=== PATIENT | female | born 1955 | race Caucasian/White ===

== ENCOUNTER 2021-10-10 11:06 | Outpatient (CLI) | payer OTHER, SELFPAY ==
--- NOTE | 2021-10-10 11:28 | ECG_ITS ---
Measurements Intervals [place] Rate: 65 P: 40 CT: 137 QRS: 37 QRSD: 89 T: 30 QT: 400 QTc: 416 Interpretive Statements SINUS RHYTHM INCOMPLETE RIGHT BUNDLE BRANCH BLOCK LOW QRS VOLTAGE IN PRECORDIAL LEADS BASELINE ARTIFACT- I, II, III, AVR, AVL, AVF BORDERLINE ECG Electronically Signed On 10-10-2021 11:48:42 CDT by Moose Clayton D.O.
[2021-10-10 11:57] LABS: Hematocrit 38.8 % (37.0-47.0); Hemoglobin 12.3 g/dL (12.0-15.0)
== END 2021-10-10 11:07 | disposition home or self-care (01) ==
LOC: ANHSURGERY 11:12
PROVIDERS: Anesthesiology; Visit Provider Surgery Plastic and Reconstructive Surgery
DX: Z01.818 Encounter for other preprocedural examination (principal); Z41.1 Encounter for cosmetic surgery; Z72.0 Tobacco use; I45.10 Unspecified right bundle-branch block
CPT/HCPCS: 36415; 85014; 85018; 93005

== ENCOUNTER 2021-10-12 00:21 | Day surgery (SDC) | payer OTHER, SELFPAY ==
[2021-10-06 15:28] VITALS: BMI 31.1
--- NOTE | 2021-10-06 15:31 | SUR.PREOP ---
Report to the Outpatient Waiting Room, entrance under the green pavilion located off [facility], at time _0600 on date _10/12/21 . OR Time: _0730. - You and your visitor will be asked a series of questions to screen for COVID 19 for your protection. - Only one visitor is allowed at this time. - The patient visitor is requested to leave or wait in car when not with patient. - A mask is required within the hospital. Patients may have clear liquids (water, carbonated beverages, clear teas, apple juice) until 3 hours prior to surgery with a maximum of 20 ounces. - No food from midnight until time of surgery - Infants may have breast milk until 4 hours before surgery, infant formula 6 hours prior to surgery. - Children will be allowed to drink immediately following surgery. If applicable, please bring a bottle or sippy cup to assist with drinking. Juice, water, soda, and popsicles are readily available. For infants on formula, please bring formula the day of surgery. Pacifiers are allowed. Take the following medications with a SIP of water the morning of surgery: __gabapentin,sertaline,anastrozole__,siponimod Medications to discontinue per physician ____aspirin Date to take last dose___09/06/21 Please no make-up, nail wolof, hairspray, perfume, deodorant, or body powder the day of surgery. No jewelry (including any body piercings) or valuables the day of surgery, leave them at home. Please take a shower or bath the night before, or the morning of, surgery with an antibacterial soap. Wear comfortable, loose fitting clothing. Children are encouraged to wear pajamas. - Jewelry must be removed prior to entering the operating room. Rings and piercings that are not removed may be cut off. - The hospital will not accept responsibility for valuables. - Please leave all valuables, including medications, at home the day of surgery. If you are going home after surgery, a licensed dumpster driver must drive you home. - NO public transportation without another adult. - We recommend that an adult stay with you for 24 hours following discharge. - We also recommend that you do not drive, make important decision, drink alcoholic beverages, or take any drugs that were not prescribed by your health care provider for at least 24 hours after your discharge time. For Pediatric surgeries, we recommend two adults accompany the child home (only one inside the building at this time). Follow any additional instructions given to you from your surgeon. If you or anyone in your household have experienced Covid symptoms in the past week, please notify your surgeon or the nurse liaison at the phone number below for possible testing. Telephone instructions given to ela mullen and asked if any additional questions and then verbalized understanding. Patient advised to call surgeon office or pre surgery nurse liaison [phone] if any additional questions.
[2021-10-12] VITALS (12 sets, daily range): BP systolic 111–142; BP diastolic 60–85; PULSE 56–93; RESP 14–20; TEMP 36.2–37.5; O2SAT 94–100; BMI 29.8
--- NOTE | 2021-10-12 06:14 | W.PM.PROC2 ---
Procedure Note - Detailed Date of Procedure 10/12/21 Pre-op Diagnosis skin laxity Post-op Diagnosis Same Procedure Performed 1. Bilateral upper eyelid blepharoplasty 2. Bilateral lower eyelid transconjunctival blepharoplasty 3. Facial rhytidectomy 4. Cervicoplasty Surgeon Jarad Stanford MD Anesthesia General Description of Procedure Preoperatively the risks, benefits, alternatives were discussed in extensive detail. I want her to be very realistic about the risks involved as well as expectations. Reviewed what we can and cannot accomplish. We discussed her current asymmetries and let will persist following the procedure. She understands this could worsen the dry eye symptoms she has currently.Realistic expectations of outcome. All questions were answered to satisfaction. Consent obtained. She was taken to the operating room placed supine on the operating room table. Anesthesia provided by anesthesiology. Prepped and draped in a standard sterile fashion. Surgical time-out was taken. Upper eyelid blepharoplasty Preoperatively I had marked upper eyelid blepharoplasty incisions. Using a pinch technique I verified no lagophthalmos following the procedure. Tetracaine eyedrops in BSS were utilized. One Upper textures were placed. 1% lidocaine and 0.25% Marcaine with epinephrine was used anesthetize locally. I sharply excised the skin flap and removed the skin just superficial to the orbicularis muscle bilateral. I then open the nasal and middle fat compartment removed just was clearly excess adipose tissue in these compartments. This was closed using a running subcuticular 5 0 Prolene suture which was ultimately held with Steri-Strips medial and lateral. Lower lid blepharoplasty 1% lidocaine and 0.25% Marcaine with epinephrine was used anesthetize locally. I sharply incised just inferior to the tarsus trans conjunctivae approach. I proceeded preseptal to the level of the orbital rim. I open the nasal, middle, and temporal fat compartments. Care was taken to protect the inferior oblique muscle which was identified. I only removed which was clearly excess adipose tissue in this location. Tarsal suspension was completed through the superior incision with 4-0 Vicryl to the orbital rim. A temporary tarsorrhaphy suture was placed. Face / Neck Local anesthesia was provided with a tumescent solution using lidocaine, epinephrine, and TXA. Once adequate time for effect a fifteen blade used to make a submental incision. Dissection was continued down identified platysma muscle. Elevated skin flaps with good adiposity of the deep surface throughout the neck. Excess preplatysmal fat was removed. I then went sub platysmal and deep fat of the small portion. Care was taken to make sure there was a good smooth contour under the submental area. There really was minimal protrusion of the submandibular glands noted and they were not treated. I plicated the digastric muscle with 2-0 Vicryl. I then slightly trimmed the platysma muscle and imbricated as with vertical mattress sutures using 2-0 Vicryl in multiple layers. Also completed inferior platysmal release with no evidence of neurovascular or other structure injury. I then proceeded made the remainder of the incisions. I elevated skin flaps with good adequate adiposity of the deep surface to have good contour. This was continued for all the areas necessary for mobilization. Platysmal window was completed inferior / lateral to the mandibular angle and I utilized 2-0 Vicryl to support to the mastoid fascia bilateral. Next SMAS plication was completed in multiple layers using 2-0 Vicryl bilateral. This is an oblique fashion from the angle towards the malar prominence. Copious irrigated with saline solution and verified strict hemostasis. I placed 10 Aramis drains the right with one deep and one superficial to the platysma. These drains were sutured in place postauricular with this 3-0
[2021-10-12] MEDS: LACTATED RINGERS 1,000 ML 30 ML IV CONT ×2 (06:39→13:27)
--- NOTE | 2021-10-12 06:39 | SUR.PREOP ---
500CC IVF BOLUS STARTED PER ORDER
--- NOTE | 2021-10-12 07:01 | WPDHPUPDATE1 ---
History and Physical Update Update Date/Time: 10/12/21 07:01 History and Physical has been reviewed, including an updated exam of the patient. There are NO changes in the patient's condition. Risks, benefits, and alternatives have been discussed and questions answered. Patient agrees to proceed with procedure.
--- NOTE | 2021-10-12 07:09 | WPDANESEPPF ---
Anes - Initial Pre Proc Eval Procedure: Operation Date: 10/12/21 07:30 Proposed Procedures p Face Lift, - Jarad Stanford MD s Neck Lift, - Jarad Stanford MD s Upper and Lower Eyelid Blepharoplasty - Jarad Stanford MD Date/Time: 10/12/21 07:09 Surgeon: Jarad Stanford MD Pre Op Diagnosis: skin laxity Patient Data Age: 65 Gender: F Height: 1.57 m Weight: 74 kg Last Vital Signs Temp 97.1 F L 10/12/21 06:27 Pulse 56 L 10/12/21 06:27 Resp 16 10/12/21 06:27 BP 111/71 10/12/21 06:27 Pulse Ox 96 10/12/21 06:27 O2 Del Method Room Air 10/12/21 06:27 Allergies Allergy/AdvReac Type Severity Reaction Status Date / Time No Known Allergies Allergy Verified 10/12/21 06:06 Home Medications Medication Instructions Recorded Confirmed Type anastrozole 1 mg tablet 1 mg PO DAILY 04/11/21 10/12/21 History aspirin 81 mg tablet,delayed 81 mg PO DAILY 04/11/21 10/06/21 History release gabapentin 300 mg capsule 300 mg PO TID 04/11/21 10/12/21 History oxybutynin chloride 10 mg 10 mg PO DAILY 04/11/21 10/12/21 History tablet,extended release 24 hr sertraline 100 mg tablet 100 mg PO DAILY 04/11/21 10/12/21 History siponimod 2 mg tablet (Mayzent) 2 mg PO DAILY 04/11/21 10/12/21 History docusate sodium 100 mg capsule 100 mg PO DAILY #14 caps 10/03/21 10/06/21 Rx (Colace) ondansetron HCl 4 mg tablet 4 mg PO Q8H #21 tabs 10/03/21 10/06/21 Rx hydrocodone 5 mg-acetaminophen 325 1 tablet PO Q6H PRN pain #30 tabs 10/04/21 10/06/21 Rx mg tablet ascorbic acid (vitamin C) 500 mg 500 mg PO DAILY 10/06/21 10/12/21 History tablet (Vitamin C) calcium carb-vit [id number]-[id number] 1 tablet PO DAILY 10/06/21 10/12/21 History 333 mg-200 unit-133 mg-5 mg tablet multivitamin 1 cap PO DAILY 10/06/21 10/12/21 History Laboratory Tests 10/12/21 06:16 Cotinine Pending Patient hx anesthesia problems: none Family hx anesthesia problems: none Results Review: All pre-operative results and documents have been reviewed as part of the pre-operative evaluation. [facility] Family History Family History Grandparent Breast cancer Mother Breast cancer Father Heart disease Sibling Diabetes mellitus Social History Social History Smoking status: Former smoker Tobacco type: cigarettes Smoking end date: 08/30/21 Additional smoking assessment comments: 1/2ppd x 40 years Alcohol intake: never Living arrangements: alone Spiritual care concerns: No Anes - Eval Final PreProcedure Day of Procedure 10/12/21 07:09 Patient weight: obese Heart: regular rate and rhythm Lungs: clear to auscultation Airway: Mallampati scale class III Neurological: alert and oriented Last oral intake: >/= 8 hours ASA classification: III Emergent: no Anesthetic plan: proceed Anesthesia type and monitoring: general ETT and standard monitoring Results Review: All pre-operative results and documents have been reviewed as part of the pre-operative evaluation. Informed Consent: The patient's anesthetic plan and its attendant risks and benefits were discussed with the patient/family/POA. Questions were solicited and answers provided to the satisfaction of the patient/family/POA.
--- NOTE | 2021-10-12 07:25 | SUR.PREOP ---
offered restroom to pt, She refused
--- NOTE | 2021-10-12 07:38 | SUR.PREOP ---
CALLED LAB REGARDING COTININE RESULT, STATES THEY WILL RUN IT NOW, TAKES [address] JOE NOTIFIED
[2021-10-12 07:47] LABS: Urine Cotinine NEGATIVE
[2021-10-12] MEDS: ceFAZolin 2 GM/D5W 50 ML 2 GM/50 ML BAG IVPB (07:52)
[2021-10-12] MEDS: TRANEXAMIC ACID 1,000MG/ISO100 1,000 MG/100 ML BAG 200 MG IVPB (08:10)
[2021-10-12] MEDS: BALANCED SALT SOLN OPHTH IRRIG 30 ML BTL EACH EYE (08:15)
[2021-10-12] MEDS: TETRACAINE HCL 0.5% OPHTH SOLN 4 ML BTL 1 DROP EACH EYE ×2 (08:30→16:49)
[2021-10-12] MEDS: LIDO 1%/EPINEPHRINE/PF 1:200,000 30 ML VIAL XX (10:04)
[2021-10-12] MEDS: BUPIVACAINE HCL 0.25% PF 30 ML VIAL INFILTRATE (10:07)
[2021-10-12] MEDS: oxyCODONE HCL (*CRX) 5 MG TAB IR PO (15:57)
--- NOTE | 2021-10-12 16:16 | SUR.PHASEII ---
Called Dr. Stanford to notify him of patient's continued discomfort to bilateral eyes. Patient is unable to open eyes to see due to discomfort. Junie at Dr. Stanford's office stated he was in a procedure at this time and she would give him the information regarding patient's condition and call back.
== END 2021-10-12 17:11 | disposition home or self-care (01) ==
PROVIDERS: Visit Provider Surgery Plastic and Reconstructive Surgery
PROC: (CPT 15824; principal; 2021-10-12 07:30)
PROC: (CPT 15819; 2021-10-12 07:30)
PROC: (CPT 15822; 2021-10-12 07:30)
DX: Z41.1 Encounter for cosmetic surgery (principal); L57.4 Cutis laxa senilis; H04.209 Unspecified epiphora, unspecified side; H02.102 Unspecified ectropion of right lower eyelid; H02.105 Unspecified ectropion of left lower eyelid; Z79.82 Long term (current) use of aspirin; E66.9 Obesity, unspecified; Z68.29 Body mass index [BMI] 29.0-29.9, adult; Z79.811 Long term (current) use of aromatase inhibitors; Z79.899 Other long term (current) drug therapy; G35 Multiple sclerosis; Z87.891 Personal history of nicotine dependence
CPT/HCPCS: 15822; 15820; 15825; 15829; 80307; A9270; J0171; J0690; J1100; J1170; J2250; J2405; J2704; J3010; J7030; J7120